=== PATIENT | male | born 1970 | race Caucasian/White ===

== ENCOUNTER 2024-03-20 14:20 | Emergency (ER) | payer OTHER, SELFPAY ==
--- NOTE | ~2024-03-20 | CT_ITS ---
EXAMINATION: CT abdomen pelvis wo con DATE: 03/20/2024 17:52 INDICATION: Abdominal pain. TECHNIQUE: Computed tomography (CT) of the abdomen and pelvis was performed without intravenous contr ast. Automated exposure control and iterative reconstruction technique were employed. The dose-length product was 1158.85 mGy-cm. COMPARISON: None. FINDINGS: The visualized portions of the lung bases demonstrate minimal atelectasis. No pleural effus ion. The heart size is normal. No pericardial effusion. There is diffuse hepatic steatosis. There are changes of cholecystectomy. The spleen, pancreas, glands, and right kidney are normal. There is a 9 mm cyst in left kidney. There is no urolithiasis. There is a right inguinal hernia containing fat. Th ere are no dilated loops of bowel. There are changes of appendectomy. There are changes of ventral he rnia repair. There are no pathologically enlarged lymph nodes. There is no free intraperitoneal fluid . There is mild lumbar spondylosis. IMPRESSION: 1. Right inguinal hernia containing fat. 2. Diffuse hepatic steatosis. Reviewed, dictated and finalized at location A. [facility]
[2024-03-20 14:26] VITALS: BP 143/83; PULSE 104; RESP 24; TEMP 36.7; O2SAT 100
[2024-03-20 15:44] VITALS: BP 154/88; PULSE 100; RESP 18; TEMP 36.4; O2SAT 100
--- NOTE | 2024-03-20 16:11 | ED.GENADULT ---
HPI - General Adult General Chief complaint: Urogenital-Male Stated complaint: bilateral flank pain, difficulty urinating Time Seen by Provider: 03/20/24 15:41 History of Present Illness HPI narrative: 54-year-old male present to the emergency department for evaluation for flank pain abdominal pain. Patient was having similar symptoms on and stop off at a hospital in [place]. Patient states he had a CT scan but was not told he had a kidney stone. Patient was told he did have some hematuria. Patient reports his symptoms have persisted so he presented to our emergency department for evaluation. Patient is a long-distance local owner operator truck driver and currently [employer] [facility]. Related Data Allergies Allergy/AdvReac Type Severity Reaction Status Date / Time iohexol (From contrast - CT, AdvReac Intermediate Nausea and Verified 03/20/24 16:50 X-RAY) Vomiting prednisone AdvReac Mild Irritable Verified 03/20/24 16:50 Review of Systems Review of Systems: All systems reviewed & are unremarkable except as noted in HPI and below Exam Narrative: APPEARANCE: Well appearing, no pain, no distress, well-nourished. HEAD: normocephalic, atraumatic. EYES: PERRLA/EOMI, conjunctivae clear. NOSE: Normal no drainage EARS:TMS clear with good light reflex. THROAT: Pharynx clear, no exudate. NECK: Supple. No adenopathy, no masses. RESPIRATORY: Airway patent, respirations nonlabored. Clear to auscultation bilaterally, no rales, rhonchi, wheezing. CARDIOVASCULAR: Regular rate and rhythm without murmurs rubs or gallops. ABDOMINAL: Soft, nontender, nondistended, normal bowel sounds MUSCULOSKELETAL: Moves all extremities. Strength/ROM intact, No edema, No calf tenderness. NEURO: Alert. Cranial nerves II through XII intact. Grossly intact SKIN: Warm, dry. Normal Color Course Vital Signs Vital signs: Vital Signs Temperature 98.1 F 03/20/24 14:26 Pulse Rate 104 H 03/20/24 14:26 Respiratory Rate 24 H 03/20/24 14:26 Blood Pressure 143/83 H 03/20/24 14:26 Pulse Oximetry 100 03/20/24 14:26 Oxygen Delivery Room Air 03/20/24 14:26 Temperature 97.6 F 03/20/24 15:44 Pulse Rate 100 03/20/24 15:44 Respiratory Rate 18 12/17/24 15:44 Blood Pressure 154/88 H 03/20/24 15:44 Pulse Oximetry 100 03/20/24 15:44 Oxygen Delivery Room Air 03/20/24 14:26 Medical Decision Making MDM Narrative Medical decision making narrative: 54-year-old male presents emergency department for evaluation for lower abdominal pain. Patient was recently evaluated outside hospital and no acute findings. Patient states symptoms have persisted so he presented to our emergency department for evaluation. Patient is currently afebrile with no leukocytosis and hemoglobin of 16.2. Patient has no acute abnormalities on his CMP other than a slightly elevated glucose at 196. UA was positive for ketones but negative for hematuria underlying infection. CT abdomen pelvis was ordered without contrast due to underlying contrast dye allergy. No acute abnormalities were identified on the CT scan. Patient was updated the results of his imaging and labs. Patient was encouraged of close follow-up with primary care physician. All questions and concerns were addressed. Differential Diagnosis Differential Diagnosis: Ureteral calculi, colitis, diverticulitis, appendicitis, pancreatitis, urinary tract infection Medical Records Medical records reviewed: Yes I reviewed the external patient's medical records. Vital Signs Vital Signs: Vital Signs Temperature 98.1 F 03/20/24 14:26 Pulse Rate 104 H 03/20/24 14:26 Respiratory Rate 24 H 03/20/24 14:26 Blood Pressure 143/83 H 03/20/24 14:26 Pulse Oximetry 100 03/20/24 14:26 Oxygen Delivery Room Air 03/20/24 14:26 Temperature 97.6 F 03/20/24 15:44 Pulse Rate 100 03/20/24 15:44 Respiratory Rate 18 03/20/24 15:44 Blood Pressure 154/88 H 03/20/24 15:44 Pulse Oximetry 100 03/20/24 15:44 Oxygen Delivery Room Air 03/20/24 14:26 Lab Data Lab results reviewed: Yes I reviewed the patient's lab results. 03/20/24 16:23 03/20/24 16:23 Labs: Lab Results 03/20/24 Range/Units 16:23 WBC 9.9 (4.5-10.0) K/mm3 RBC 5.19 (4.6-6.20) M/mm3 Hgb 16.2 (14.0-18.0) g/dL Hct 47.6 (42.0-52.0) % MCV 91.7 (80-100) fl MCH 31.2 (26-34) pg MCHC 34.0 (32-36) g/dl RDW 14.1 (11.5-14.5) % Plt Count 244 (150-375) k/mm3 MPV 9.7 (7.4-10.4) fl Immature Gran % (Auto) 0.3 (0-0.5) % Neut % (Auto) 60.9 (45.5-73.1) % Lymph % (Auto) 29.0 (18.3-44.2) % Kerr % (Auto) 7.8 (2.6-8.5) % Eos % (Auto) 1.1 (0-4.4) % Baso % (Auto) 0.9 (0.2-1.2) % Lymph # (Auto) 2.87 (0.9-3.2) K/mm3 Kerr # (Auto) 0.8 H (0.1-0.6) K/mm3 Eos # (Auto) 0.1 (0-0.3) K/mm3 Baso # (Auto) 0.1 (0.0-0.1) K/mm3 Abs Immat Gran (auto) 0.03 (0.00-0.031) K/mm3 Absolute Neuts (auto) 6.0 (1.3-6.7) K/mm3 Absolute Nucleated RBC 0.000 (0.0-0.012) K/mm3 Nucleated RBC % 0.0 (0.0-0.2) % Sodium 140 (137-145) mmol/L Potassium 4.1 (3.4-5.0) mmol/L Chloride 107 (98-107) mmol/L Carbon Dioxide 24 (22-30) mmol/L Anion Gap 9 (4-12) mmol/L BUN 15 (9-20) mg/dL Creatinine 1.10 (0.7-1.3) mg/dL Estim Creat Clear Calc 86 ml/min Estimated GFR > 60 (59 - ) Glucose 196 H (65-110) mg/dL Calcium 9.5 (8.4-10.2) mg/dL Total Bilirubin 1.2 (0.2-1.3) mg/dL AST 45 (17-59) U/L ALT 64 H (6-50) U/L Alkaline Phosphatase 85 (38-126) U/L Total Protein 8.0 (6.3-8.2) g/dL Albumin 4.8 (3.5-5.1) g/dL Urine Color Yellow (Yellow) Urine Appearance Clear (Clear) Urine pH 5.0 (5.0-9.0) Ur Specific [place] 1.031 (1.001-1.035) Urine Protein Trace (Negative) mg/dL Urine Glucose (UA) 3+ H (Negative) mg/dL Urine Ketones Trace H (Negative) mg/dL Ur Blood (Man) Negative (Negative) Urine Nitrate Negative (Negative) Urine Bilirubin Negative (Negative) Urine Urobilinogen 0.2 (<2.0) mg/dL Leukocyte Esterase Rfl Negative (Negative) JOSHUA/UL Urine RBC 0-2 (0-2) /hpf Urine WBC 0-5 (0-3) /hpf Ur Squamous Epith Cells Occasional (Few) /hpf Urine Bacteria None seen /hpf Urine Casts 0-2 Imaging Data Radiologist's impression: Impressions Abdomen/Pelvis CT 03/20/24 17:59 IMPRESSION: 1. Right inguinal hernia containing fat. 2. Diffuse hepatic steatosis. Discharge Plan Discharge Clinical Impression: Abdominal pain Patient Disposition: Home, Self-Care Condition: Stable Instructions: Antibiotic Form, Abdominal Pain (ED) Additional Instructions: Continue to have close follow-up with your primary care physician. If you have any worsening symptoms then please call or return to the emergency department. Patient Language: Bahraini Follow-up/Referrals: PHYSICIAN,[employer]TER [Primary Care Provider] - Stand Alone Forms: Work/School Release IP
[2024-03-20 16:30] LABS: Basophils Absolute Auto 0.1 K/mm3 (0.0-0.1); Basophils Percent Auto 0.9 % (0.2-1.2); Eosinophils Absolute Auto 0.1 K/mm3 (0-0.3); Eosinophils Percent Auto 1.1 % (0-4.4); Hematocrit 47.6 % (42.0-52.0); Hemoglobin 16.2 g/dL (14.0-18.0); Immature Granulocyte Absolute 0.03 K/mm3 (0.00-0.031); Immature Granulocyte Percent A 0.3 % (0-0.5); Lymphocytes Absolute Auto 2.87 K/mm3 (0.9-3.2); Mean Corpuscular Hemoglobin 31.2 pg (26-34); Mean Corpuscular Volume 91.7 fl (80-100); Mean Platelet Volume 9.7 fl (7.4-10.4); Monocytes Absolute Auto 0.8 K/mm3 (0.1-0.6); Monocytes Percent Auto 7.8 % (2.6-8.5); Neutrophils Percent Auto 60.9 % (45.5-73.1); Platelet Count Result 244 k/mm3 (150-375); Red Blood Count 5.19 M/mm3 (4.6-6.20); Red Cell Distribution Width 14.1 % (11.5-14.5); White Blood Count 9.9 K/mm3 (4.5-10.0)
[2024-03-20 16:34] LABS: Add Urine Microscopic? YES; Appearance Urine Clear (Clear); Bacteria Urine None Seen /hpf; Bilirubin Urine Negative (Negative); Blood Urine Negative (Negative); Color Urine Yellow (Yellow); Glucose Urine UA 3+ mg/dL (Negative); Ketones Urine Trace mg/dL (Negative); Leukocyte Esterase Ur Negative LEU/UL (Negative); Nitrate Urine Negative (Negative); Non Pathogenic Casts 0-2; Protein Urine Trace mg/dL (Negative); RBC Urine 0-2 /hpf (0-2); Specific Grav Ur 1.031 (1.001-1.035); Squamous Epithelial Cell Urine Occasional /hpf (Few); Urobilinogen Urine 0.2 mg/dL (<2.0); WBC Urine 0-5 /hpf (0-3)
[2024-03-20] MEDS: HYDROmorphone HCL INJ (*CRX) 1 MG/ML SYR 0.5 MG IV PUSH (16:46)
[2024-03-20 16:55] LABS: Alanine Aminotransferase 64 U/L (6-50); Albumin Level 4.8 g/dL (3.5-5.1); Alkaline Phosphatase 85 U/L (38-126); Anion Gap 9 mmol/L (4-12); Aspartate Amino Transferase 45 U/L (17-59); Bilirubin,Total 1.2 mg/dL (0.2-1.3); Blood Urea Nitrogen 15 mg/dL (9-20); Calcium 9.5 mg/dL (8.4-10.2); Carbon Dioxide 24 mmol/L (22-30); Chloride 107 mmol/L (98-107); Estimated CRCL calculation 86 ml/min; Estimated Glomerular Filt Rate > 60; Glucose 196 mg/dL (65-110); Potassium 4.1 mmol/L (3.4-5.0); Sodium 140 mmol/L (137-145)
== END 2024-03-20 19:17 | disposition home or self-care (01) ==
PROVIDERS: Emergency Provider Emergency Medicine
DX: R10.9 Unspecified abdominal pain (principal); K40.90 Unilateral inguinal hernia, without obstruction or gangrene, not specified as recurrent; K76.0 Fatty (change of) liver, not elsewhere classified
CPT/HCPCS: 36415; 74176; 80053; 81001; 85025; 96374; 99284; J1171